=== PATIENT | male | born 1965 | race Caucasian/White ===

== ENCOUNTER 2023-03-04 15:05 | Emergency (ER) | payer BC, SELFPAY ==
[2023-03-04] VITALS (19 sets, daily range): BP systolic 123–157; BP diastolic 76–102; PULSE 73–93; RESP 16–18; TEMP 36–36.8; O2SAT 93–97; BMI 32.9
[2023-03-04 15:44] LABS: Basophils Absolute Auto 0.02 K/uL (0.00-0.30); Basophils Percent Auto 0.2 % (0.0-3.0); Eosinophils Absolute Auto 0.06 K/uL (0.00-0.50); Eosinophils Percent Auto 0.6 % (0.0-7.0); Hematocrit 39.2 % (37.0-53.0); Hemoglobin* 13.4 gm/dL (13.5-17.5); Immature Granulocytes Abs Auto 0.01 K/uL (0.00-0.30); Immature Granulocytes Pct Auto 0.1 %; Lymphocytes Percent Auto 23.4 % (20-44); Mean Corpuscular HGB Conc 34 gm/dL (32-36); Mean Corpuscular Hemoglobin 30 pg (26-34); Mean Corpuscular Volume 87 fL (80-100); Monocytes Percent Auto 5.5 % (0.0-11.0); Neutrophils Percent Auto 70.2 % (42.0-72.0); Platelet Count* 272 K/uL (140-440); RDW Coefficient of Variation % 13.5 % (11.5-15.5); Red Blood Count 4.49 m/uL (4.30-5.90); White Blood Count* 9.83 K/uL (4.50-11.00)
[2023-03-04 15:46] LABS: Slide Review Reflex No
[2023-03-04] MEDS: PANTOPRAZOLE SODIUM 40 MG INJ 80 MG IVP (15:53)
[2023-03-04] MEDS: ONDANSETRON 2 MG/ML inj 4 MG IVP (15:54)
--- NOTE | 2023-03-04 15:55 | ED_ITS ---
HPI - General Adult General Date Seen: 03/04/23 Chief complaint: GI Bleed Stated complaint: bleeding esophagus Time Seen by Provider: 03/04/23 15:23 History of Present Illness HPI narrative: 57-year-old male with a history of Allen's esophagus and GERD presenting to the ER today with with an episode of large volume hematemesis. He had a routine outpatient upper endoscopy done at [facility] at their facility in [place] today, by Dr. Arboleda. The procedure was intended to be screening for his Allen's. He did have an esophageal polyp. This was biopsied. Report given to the patient and his was that after the biopsy he had some si gnificant bleeding from the polyp site. He apparently had a undergo cautery of the bleeding polyp and also had 2 clips placed. Apparently the bleeding was controlled. He was discharged home at about 1:00 p.m.. After discharge he did have a little bit of Sprite. He went to lay down in bed. He began to feel progressively blood in nauseous. He then went to the bathroom and had large volume bloody emesis. He says he threw up ?all lot of blood?. And had to the vomit and flush the toilet 3 times because of the amount of the blood that came out. Since the vomiting he has been very weak. He feels dizzy whenever he tries to sit up or stand up. He has not fainted. He still has mild ongoing nausea and a bloated feeling in his stomach. He was not having any trouble with bleeding or black stools prior to his procedure. No fever. He is not anticoagulated or coagulopathic. Related Data Home Medications Medication Instructions Recorded Confirmed lisinopril 40 mg tablet 40 mg PO DAILY 03/04/23 03/04/23 omeprazole 20 mg capsule,delayed mg PO 03/04/23 release Allergies Allergy/AdvReac Type Severity Reaction Status Date / Time No Known Drug Allergies Allergy Verified 03/04/23 15:16 Exam Narrative: Exam Narrative: Constitutional: Appears well-developed and well-nourished. Alert. Conversant. His skin looks quite pale. He is like him back in bed and looks uncomfortable. HENT: Head: Atraumatic. Nose: Nose normal. Mouth/Throat: Oral mucosa is clear and moist. Tongue is pale. no trismus. Pharynx normal. Tonsils symmetric. No tonsillar enlargement, erythema, or exudate. Eyes: Conjunctivae pale. EOM normal. Pupils equal, round, and reactive to light. No scleral icterus. Neck: Normal range of motion. Neck supple. No tracheal deviation present. Cardiovascular: Normal rate, regular rhythm. No gallop. No friction rub. No murmur heard. Symmetric radial artery pulses Pulmonary/Chest: Effort normal. No stridor. No respiratory distress. No wheezes. No rales. No rhonchi . No tenderness. Abdominal: Soft. Bowel sounds normal. No distension. No mass. No HSM. No tenderness. No rebound. No guarding. Musculoskeletal: RUE: Normal range of motion. No tenderness. No deformity LUE: Normal range of motion. No tenderness. No deformity RLE: Normal range of motion. No edema. No tenderness. No deformity LLE: Normal range of motion. No edema. No tenderness. No deformity Neurological: Alert and oriented to person, place, and time. Normal strength. CN II-VII intact. No sensory deficit. GCS eye subscore is 4. GCS verbal subscore is 5. GCS motor subscore is 6. Normal coordination Skin: Skin is pale but not mottled. No diaphoresis. Skin is warm and dry. No rash noted.Normal capillary refill. Psychiatric: Normal mood. Normal affect. Const: Vital Signs, click to edit/add: Vital Signs - 24 hr 03/04/23 15:11 03/04/23 16:17 03/04/23 16:18 Temperature 96.8 F L Pulse Rate 74 81 Pulse Rate [Pulse Oximeter] 73 Respiratory Rate 18 Blood Pressure 156/76 H Blood Pressure [Ri ght Upper Arm] 123/76 Pulse Oximetry 97 96 94 Oxygen Delivery Me thod Room Air 03/04/23 16:19 03/04/23 16:30 03/04/23 16:31 Temperature Pulse Rate 80 81 83 Pulse Rate [Pulse Oximeter] Respiratory Rate Blood Pressure 154/102 H Blood Pressure [Ri ght Upper Arm] Pulse Oximetry 97 94 97 Oxygen Delivery Me thod 03/04/23 16:45 03/04/23 17:00 03/04/23 17:02 Temperature Pulse Rate 87 85 90 Pulse Rate [Pulse Oximeter] Respiratory Rate Blood Pressure 147/93 H Blood Pressure [Ri ght Upper Arm] Pulse Oximetry 95 96 96 Oxygen Delivery Me thod 03/04/23 17:15 03/04/23 17:30 03/04/23 17:30 Temperature 98.3 F Pulse Rate 82 87 85 Pulse Rate [Pulse Oximeter] Respiratory Rate 16 Blood Pressure 157/97 H Blood Pressure [Ri ght Upper Arm] Pulse Oximetry 95 94 94 Oxygen Delivery Me thod 03/04/23 17:31 03/04/23 17:45 03/04/23 17:54 Temperature 98.0 F Pulse Rate 84 90 79 Pulse Rate [Pulse Oximeter] Respiratory Rate 16 Blood Pressure 157/97 H 135/84 Blood Pressure [Ri ght Upper Arm] Pulse Oximetry 93 94 94 Oxygen Delivery Me thod 03/04/23 17:55 03/04/23 18:00 03/04/23 18:01 Temperature Pulse Rate 76 93 90 Pulse Rate [Pulse Oximeter] Respiratory Rate Blood Pressure 135/84 134/88 Blood Pressure [Ri ght Upper Arm] Pulse Oximetry 93 94 93 Oxygen Delivery Me thod 03/04/23 18:02 03/04/23 18:15 Temperature Pulse Rate 86 Pulse Rate [Pulse Oximeter] Respiratory Rate Blood Pressure 148/88 H Blood Pressure [Ri ght Upper Arm] Pulse Oximetry 94 Oxygen Delivery Me thod Course Course ED Course: Recheck-blood pressure stable. Still mildly nauseous. Discussed with surgery, Dr. Pires. She advises transfer since we are not able to perform therapeutic EGD here at [place]. Reevaluation(s) Reevaluation #1: Recheck-blood pressure stable but in the low normal range-106/60.. Pulse is going to from the 70s to 80s. Consult placed to [facility] transfer line. Also consult placed to [facility]. Discussed with [facility], Dr. Arboleda. He advises transfer to [place] because the patient will need a repeat scope this afternoon to look for recurrent bleeding. Reevaluation #2: Recheck finally discussed with [facility] transfer line. They were able to put me in contact with Dr. Mckeon. I reviewed the patient detail with Dr. Mckeon. He does agree that it is appropriate to transfer the patient. He is not sure he would do an emergency procedure unless the patient has more bloody emesis. Unfortunately there are no open beds on the medical floor at [facility]. Under the circumstances the patient would either have to transfer ED to ED at [facility] or have to remain here in [place], boarding in the ER, until tomorrow or until he becomes unstable. Given the large volume of reported hematemesis and significant symptoms, signs of pallor on the patient's clinical exam, I do think he had a significant upper GI bleed and would be at high risk if he has a recurrent episode of bleeding. Risk for exsanguinating hemorrhage is present. Although initial hemoglobin is 13.4, he has not had time to hemo dilute and I suspect this is not reflect his true hemoglobin status. His symptoms suggest more significant anemia with marked lightheadedness, dizziness with sitting up, and significant pallor on exam. With a beckwith 8 resuscitation with 1 L of packed red cells here. No need for platelet transfusion or PCC in the absence of anticoagulants. Studies have shown TXA ineffective in the setting of upper GI bleed. Will transfer ED to ED at [facility] so that at least he can be the appropriate facility if any recurrent hemorrhaging bleeds. He may yet require procedure this afternoon to reassess his bleeding polyp biopsy site. We initiated transfusion of packed red cells. He remained hemodynamically stable. He was transferred by EMS [facility]. Vital Signs Vital signs: Initial Vital Signs Temperature 96.8 F L 03/04/23 15:11 Temperature Source Temporal Artery Scan 03/04/23 15:11 Pulse Rate 73 03/04/23 15:11 Respiratory Rate 18 03/04/23 15:11 Blood Pressure 123/76 03/04/23 15:11 Blood Pressure Mean 91 03/04/23 15:11 Pulse Oximetry 97 03/04/23 15:11 Oxygen Delivery Method Room Air 03/04/23 15:11 Vital Signs Temperature 96.8 F L 03/04/23 15:11 Pulse Rate 73 03/04/23 15:11 Respiratory Rate 18 03/04/23 15:11 Blood Pressure 123/76 03/04/23 15:11 Pulse Oximetry 97 03/04/23 15:11 Oxygen Delivery Method Room Air 03/04/23 15:11 Temperature 98.0 F 03/04/23 17:54 Pulse Rate 86 03/04/23 18:02 Respiratory Rate 16 03/04/23 17:54 Blood Pressure 148/88 H 03/04/23 18:15 Pulse Oximetry 94 03/04/23 18:02 Oxygen Delivery Method Room Air 03/04/23 15:11 Medications Administered Medications: Discontinued Medications Generic Name Dose Route Start Last Admin Trade Name Yanickq PRN Reason Stop Dose Admin Metoclopramide HCl 10 mg 03/04/23 16:46 03/04/23 16:53 Metoclopramide Hcl 5 Mg/Ml Inj IVP 03/04/23 16:47 10 mg ONCE ONE Administration Ondansetron HCl 4 mg 03/04/23 15:39 03/04/23 15:54 Ondansetron 2 Mg/Ml Inj IVP 03/04/23 15:40 4 mg ONCE ONE Administration Pantoprazole Sodium 80 mg 03/04/23 15:39 03/04/23 15:53 Pantoprazole Sodium 40 Mg Inj IVP 03/04/23 15:40 80 mg ONCE ONE Administration Sodium Chloride 250 ml 03/04/23 15:53 03/04/23 18:29 0.9 % Sodium Chloride 250 Ml IV 03/05/23 23:59 250 ml ONCE PRN Administration Medical Decision Making Lab Data Labs: Lab Results 03/04/23 Range/Units 15:36 WBC 9.83 (4.50-11.00) K/uL RBC 4.49 (4.30-5.90) m/uL Hgb 13.4 L (13.5-17.5) gm/dL Hct 39.2 (37.0-53.0) % MCV 87 (80-100) fL MCH 30 (26-34) pg MCHC 34 (32-36) gm/dL RDW Coeff of Kevin 13.5 (11.5-15.5) % Plt Count 272 (140-440) K/uL Neut % (Auto) 70.2 (42.0-72.0) % Lymph % (Auto) 23.4 (20-44) % Crisp % (Auto) 5.5 (0.0-11.0) % Eos % (Auto) 0.6 (0.0-7.0) % Baso % (Auto) 0.2 (0.0-3.0) % Neut # (Auto) 6.90 (1.7-7.0) K/uL Lymph # (Auto) 2.30 (0.90-2.90) K/uL Crisp # (Auto) 0.50 (0.00-0.90) K/UL Eos # (Auto) 0.06 (0.00-0.50) K/uL Baso # (Auto) 0.02 (0.00-0.30) K/uL Abs Immat Gran (auto) 0.01 (0.00-0.30) K/uL Imm/Tot Granulo (auto) 0.1 % INR 1.03 (0.91-1.10) Sodium 131 L (135-149) mmol/L Potassium 3.9 (3.6-5.1) mmol/L Chloride 106 (96-114) mmol/L Carbon Dioxide 22 (20-32) mmol/L Anion Gap 3 L (7-15) mEq/L BUN 22 (7-30) mg/dL Creatinine 1.0 (0.5-1.5) mg/dL Estimated Creat Clear 78.03 Estimated GFR 89 ml/min Glucose 179 H (60-115) mg/dL Calcium 8.5 (8.4-10.6) mg/dL Blood Type B Positive Antibody Screen NEGATIVE Crossmatch ([facility]) See Detail Discharge Plan Discharge Clinical Impression: Acute upper GI bleed, Esophageal polyp Patient Disposition: [facility] Prescriptions: No Action omeprazole 20 mg capsule,delayed release(DR/EC) PO lisinopril 40 mg tablet 40 mg PO DAILY Stand Alone Forms: MyHealth Info Instructions
[2023-03-04 16:00] LABS: Chloride* 106 mmol/L (96-114); Potassium* 3.9 mmol/L (3.6-5.1); Sodium* 131 mmol/L (135-149)
[2023-03-04 16:03] LABS: Anion Gap 3 mEq/L (7-15); Blood Urea Nitrogen* 22 mg/dL (7-30); Carbon Dioxide* 22 mmol/L (20-32); Est. Creatinine Clearance* 78.03; Estimated Glomerular Filt Rate 89 ml/min; Glucose* 179 mg/dL (60-115)
[2023-03-04 16:04] LABS: Calcium* 8.5 mg/dL (8.4-10.6)
[2023-03-04 16:21] LABS: INR 1.03 (0.91-1.10); Prothrombin Time 14.1 Seconds
[2023-03-04] MEDS: METOCLOPRAMIDE HCL 5 MG/ML INJ 10 MG IVP (16:53)
--- NOTE | 2023-03-04 18:23 | ED.NURSE ---
Blood transfusion started at 1738, blood was still infusing when EMS arrived for transfer. EMS informed of start time 1738 and of 4 hour end time 2138, EMS will continue to infuse in transport.
[2023-03-04] MEDS: 0.9 % SODIUM CHLORIDE 250 ml IV (18:29)
== END 2023-03-04 18:30 | disposition short-term general hospital (02) ==
LOC: ED 17:53
PROVIDERS: Emergency Provider Emergency Medicine; PCP Family Medicine
DX: K92.2 Gastrointestinal hemorrhage, unspecified (principal); K22.81 Esophageal polyp
CPT/HCPCS: 36415; 36430; 80048; 85025; 85610; 86850; 86900; 86901; 86922; 96374; 96375; 99284; 99285; C9113; J2405; J2765; J7050; P9016

== ENCOUNTER 2024-03-15 06:19 | Day surgery (SDC) | payer BC, SELFPAY ==
[2024-03-15] VITALS (12 sets, daily range): BP systolic 114–137; BP diastolic 74–93; PULSE 60–82; RESP 16; TEMP 36.6–37; O2SAT 94–97; BMI 33.1
[2024-03-15] MEDS: 0.9 % SODIUM CHLORIDE 500 ML 500 ML IV (07:24)
[2024-03-15] MEDS: CEFAZOLIN 2 GM INJ IVP (07:41)
--- NOTE | 2024-03-15 07:48 | W.PM.H&PU ---
History & Physical Update History & Physical Update H&P Reviewed and patient assessed: No changes noted
[2024-03-15] MEDS: BUPIVACAINE 0.25% 30 ML INJECTION (08:04)
--- NOTE | 2024-03-15 08:41 | W.ANESCHARGE ---
Anesthesia Charges Start Date/Time Anesthesia Start Date: 03/15/24 Anesthesia Start Time: 07:26 Stop Date/Time Anesthesia Stop Date: 03/15/24 Anesthesia Stop Time: 08:44
--- NOTE | 2024-03-15 08:46 | PM.GSPRC ---
Operative Note Date of procedure: 03/15/24 Pre-op diagnosis: Symptomatic left inguinal hernia Post-op diagnosis: Same Type of Procedure: Laparoscopic repair left inguinal hernia Indications: The patient is a 58-year-old male who noted pain in his left groin earlier this summer. He was noted to have a small left inguinal hernia. After discussion of options, he elected to proceed with repair. Procedure Description: After discussing the risks and benefits of the procedure, the patient signed informed consent.? The operative site was marked and the patient was brought to the operating room and placed on the operating table in supine position.? Care was taken to pad the patient's pressure points.?? The patient was then intubated by anesthesia.?? The operative site was then prepped and draped in the usual sterile fashion.? A time-out was then performed. A curvilinear incision was made below the umbilicus. Dissection was carried down to subcutaneous tissue until the anterior rectus fascia was encountered. This was incised off the midline on the left. The rectus muscle fibers were then retracted exposing the posterior fascia. A port with a dissecting balloon was then introduced into the pre-preperitoneal space. This was inflated under direct vision. The balloon was deflated, removed, and a 10 mm working port was placed. The space was insufflated and a 10 mm 30-degree scope was then advanced into the space. Two 5 mm ports were placed in the midline under direct vision. Dissection began on the left side. Erick's ligament and the pubic bone were exposed medially. No direct defect was noted. Following this, dissection was carried out laterally. A moderate cord lipoma was identified. This was reduced, clearing the cord structures. The internal ring was examined ensuring all the preperitoneal fat had been reduced. The peritoneum was then dissected free from the cord structures blunt dissection. Once the hernia was completely reduced, a piece of Bard 3DMax mesh for the appropriate side was placed into the abdomen. This was positioned with the marker pointed medially. A Tacker was used to attach the mesh medially at Erick's ligament and 1 tack laterally with care to avoid the epigastric vessels and stay above the inguinal ligament. Once this was completed the the preperitoneal space desufflated under direct vision to ensure the mesh laid flat. 10 mL of 0.5% Marcaine were instilled into the preperitoneal space through a port. The ports were removed. The fascia from the infraumbilical port was closed with 0 Vicryl. The skin incisions were closed with absorbable subcuticular suture. Sterile dressings were then applied. The scrotum was examined to ensure that both testicles were down. Instrument sponge and needle counts were correct at the end of the case. The patient tolerated the procedure well. Findings: Herniated preperitoneal fat through an indirect inguinal hernia. Anesthesia: GETA Surgeon: Suyapa Gray MD Estimated blood loss (mL): 5 Condition: stable Disposition: PACU
--- NOTE | 2024-03-15 09:18 | W.ANESCHARGE ---
Anesthesia Charges Start Date/Time Anesthesia Start Date: 03/15/24 Anesthesia Start Time: 07:26 Stop Date/Time Anesthesia Stop Date: 03/15/24 Anesthesia Stop Time: 08:44
[2024-03-15] MEDS: HYDROCODONE-ACETAMIN 5-325 MG 1 TAB PO (10:29)
== END 2024-03-15 10:35 | disposition home or self-care (01) ==
PROVIDERS: PCP Family Medicine; Visit Provider Surgery
PROC: (CPT 49650; principal; 2024-03-15 07:30)
DX: K40.90 Unilateral inguinal hernia, without obstruction or gangrene, not specified as recurrent (principal)
CPT/HCPCS: 49650; 00840; 00860; A9270; C1781; J0330; J0665; J0690; J1100; J1171; J1885; J2250; J2405; J2704; J3010; J3490; J7030